=== PATIENT | female | born 1955 | race Caucasian/White ===

== ENCOUNTER 2022-09-22 17:40 | Emergency (ER) | payer MEDICARE, SELFPAY ==
[2022-09-22 17:52] VITALS: BP 130/81; PULSE 105; RESP 16; TEMP 36.4; O2SAT 96
[2022-09-22 17:53] VITALS: BP 130/81; PULSE 105; RESP 16; TEMP 36.4; O2SAT 96
--- NOTE | 2022-09-22 18:10 | ED.URI ---
HPI - URI/Sore Throat General Chief Complaint: Upper Respiratory Infection Stated Complaint: cov pos Time Seen by Provider: 09/22/22 18:10 Source: patient and RN notes reviewed Mode of arrival: ambulatory Limitations: no limitations History of Present Illness HPI Narrative: 67 y/o female presented for c/o cough, fever, fatigue and a positive home covid test today. Endorses sinus congestion and cough started about 4 days ago. Patient is from [place] and reports she tends to get allergies when coming to [place]' which she attributed her symptoms. Reports temp up to 100.5 yesterday. Reports chest tightness and sore throat with coughing. cough is somewhat productive. Denies sob, wheezing, n/v/d. MD elicited complaint: cough Related Data Home Medications Medication Instructions Recorded Confirmed anastrozole 1 mg tablet 1 mg PO DAILY 09/22/22 09/22/22 losartan 50 mg-hydrochlorothiazide 1 tablet PO DAILY 09/22/22 09/22/22 12.5 mg tablet Allergies Allergy/AdvReac Type Severity Reaction Status Date / Time No Known Allergies Allergy Verified 09/22/22 18:00 Review of Systems Review of Systems: CONSTITUTIONAL: Endorses malaise, chills, sweats, fever EYES: Denies visual changes, redness, or discharge ENT: Reports rhinorrhea, congestion, sinus pain, denies otalgia, sore throat CARDIOVASCULAR: Denies chest pain, palpitations, edema RESPIRATORY: Reports cough, post nasal drainage. Denies dyspnea GASTROINTESTINAL: Denies abdominal pain, nausea, vomiting, diarrhea SKIN: Denies rash or itching MUSCULOSKELETAL: Endorses myalgia NEUROLOGIC: Denies headache [facility] Past Medical History Medical History (Updated 09/22/22 @ 19:19 by Neha Dhillon APRN) Breast cancer Hypertension Surgical History Surgical History (Updated 09/22/22 @ 19:19 by Neha Dhillon APRN) H/O lumpectomy Exam Narrative: GENERAL: Ill-appearing, nontoxic no acute distress. EYES: PERRLA, conjunctivae clear ENT: Mucous membranes moist. Nasal congestion. TM pearly nichols with dull light reflex bilaterally; no tragal tenderness. Oropharynx erythematous without lesions or exudate NECK: Supple. No lymphadenopathy CHEST: Clear to auscultation, breath sounds equal. 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 No wheezing, rhonchi, rales, or stridor. No respiratory distress, speaks in full sentences. HEART: Regular rate and rhythm. No murmur heard. SKIN: Warm, dry, no rash. NEURO: Alert and oriented x3. PSYCH: Normal mood and affect Course Course Emergency Course: Patient is aware of diagnosis, understands and agrees to treatment plan. Anticipatory guidance given. Patient agrees to follow-up as directed and is aware of reasons to seek care at the emergency department. Portions of this record may have been created with voice recognition software Level of Care: Express Care Visit Vital Signs Vital signs: Vital Signs Temperature 97.6 F 09/22/22 17:52 Pulse Rate 105 H 09/22/22 17:52 Respiratory Rate 16 09/22/22 17:52 Blood Pressure 130/81 09/22/22 17:52 Pulse Oximetry 96 09/22/22 17:52 Temperature 97.6 F 09/22/22 17:53 Pulse Rate 105 H 09/22/22 17:53 Respiratory Rate 16 09/22/22 17:53 Blood Pressure 130/81 09/22/22 17:53 Pulse Oximetry 96 09/22/22 17:53 reviewed MDM - URI/Sore Throat MDM Narrative Medical decision making narrative: Patient presented with covid symptoms and positive home covid test. Patient lives in [place] and plans to return [place]. Next flight is in 2 or 3 days. Discussed quarantine for 5 days from start of symptoms and advised no travel until symptoms are improved, and to wear mask at all times. Discussed risks and benefits of paxlovid, patient declined. Will send Rx steroid. Patient is nontoxic, vss. Advised supportive measures and signs/symptoms to go to the ER. Pt is appropriate for outpt treatment and f/u. Differential Diagnosis Differential diagnosis: Likely upper respiratory infection, sinusitis
== END 2022-09-22 18:50 | disposition home or self-care (01) ==
PROVIDERS: Emergency Provider Nurse Practitioner Family
DX: B34.9 Viral infection, unspecified (principal); Z85.3 Personal history of malignant neoplasm of breast; I10 Essential (primary) hypertension
CPT/HCPCS: 99213; G0463